=== PATIENT | female | born 1950 | race Caucasian/White ===

== ENCOUNTER 2023-12-13 12:19 | Outpatient (CLI) | payer MEDICARE, OTHER | END 2023-12-13 12:20 | disposition home or self-care (01) | LOC: CSHULT 12:19 | PROVIDERS: ATTEND Family Medicine | DX: R19.04 Left lower quadrant abdominal swelling, mass and lump (principal); K80.20 Calculus of gallbladder without cholecystitis without obstruction; N28.1 Cyst of kidney, acquired; N94.9 Unspecified condition associated with female genital organs and menstrual cycle | CPT/HCPCS: 76700; 76856 ==

== ENCOUNTER 2024-01-23 09:01 | Outpatient (CLI) | payer MEDICARE | END 2024-01-23 09:02 | disposition home or self-care (01) | LOC: CSHULT 09:01 | PROVIDERS: ATTEND Family Medicine | DX: R19.04 Left lower quadrant abdominal swelling, mass and lump (principal); N28.9 Disorder of kidney and ureter, unspecified; K80.20 Calculus of gallbladder without cholecystitis without obstruction | CPT/HCPCS: 76700; 76856 ==

== ENCOUNTER 2024-03-24 09:36 | Outpatient (CLI) | payer MEDICARE ==
[2024-03-24 12:13] LABS: #Basophils 0.04 10x3/uL (0.0-0.2); #Eosinophils 0.15 10x3/uL (0.0-0.5); #Monocytes 0.44 10x3/uL (0.0-1.1); #Neutrophils 3.15 10x3/uL (1.5-8.4); %Basophils 0.8 % (0.0-2.0); %Monocytes 8.9 % (0.0-10.0); %Neutrophils 64.1 % (40.0-75.0); Hematocrit 33.8 % (34.9-44.5); Hemoglobin 10.8 g/dL (12.0-15.5); Mean Corpuscular Hemoglobin 30.4 pg (27.0-33.0); Mean Corpuscular Volume 95.2 fL (81.6-98.3); Platelet Count 223 10x3/uL (150-450); Red Blood Cell (RBC) Count 3.55 10x6/uL (3.90-5.03); White Blood Cell (WBC) Count 4.92 10x3/uL (3.5-10.5)
[2024-03-24 13:09] LABS: Anion Gap 11 mmol/L (10-20); BUN (Urea Nitrogen) 25 mg/dL (9.8-20.1); Calc. Creatinine Clearance 0 mL/min (70-130); Calcium 8.8 mg/dL (7.8-10.44); Carbon Dioxide 29 mmol/L (23-31); Chloride 104 mmol/L (98-107); Estimated GFR 59; Glucose 55 mg/dL (83-110); Sodium 140 mmol/L (136-145)
== END 2024-03-24 09:37 | disposition home or self-care (01) ==
LOC: CSHLAB 09:36
PROVIDERS: ATTEND Specialist
DX: Z01.818 Encounter for other preprocedural examination (principal); K43.9 Ventral hernia without obstruction or gangrene
CPT/HCPCS: 71046; 80048; 85025